=== PATIENT | male | born 1990 | race Caucasian/White ===

== ENCOUNTER 2021-03-28 15:53 | Emergency (ER) | payer BC ==
[~2021-03-28] VITALS: Ht 188 cm; Wt 97.5 kg
[2021-03-28 16:19] VITALS: BP 157/88
[2021-03-28 16:26] VITALS: BP 155/88
--- NOTE | 2021-03-28 16:26 | ER.PDOC ---
General Chief Complaint: Requesting Medical Care Stated Complaint: COUGH/CONGESTION Time seen by MD: 16:24 Source: patient Exam Limitations: no limitations History of Present Illness Timing/Duration: gradual Severity: moderate Associated Symptoms: cough, productive cough, mild SOB Prior symptoms/Treatment: Similar symptoms previous Allergies: Coded Allergies: No Known Allergies (Unverified , 03/28/21) Constitutional: no symptoms reported EENTM: no symptoms reported Respiratory: cough, wheezing Cardiovascular: no symptoms reported Gastrointestinal: no symptoms reported Genitourinary: no symptoms reported Musculoskeletal: no symptoms reported Skin: no symptoms reported Psychiatric/Neurological: no symptoms reported Endocrine: no symptoms reported Hematologic/Lymphatic: no symptoms reported All Other Systems: Reviewed and Negative Past Medical History Medical History: no pertinent history Physical Exam General Appearance: alert, no distress Eye: eyes nml inspection, lids & conjunct. nml, PERRL, no nystagmus Ear: ear nml Nose: nose nml Throat: pharynx nml, airway nml Neck: nml inspection, supple Respiratory: no resp.distress, rales (Crackles in the bases bilaterally.) Abdomen: non-tender, no organomegaly CVS: reg rate & rhythm, heart sounds nml Skin: color nml, no rash, warm/dry Extremities: non-tender, nml ROM, no pedal edema NEURO/PSYCH: oriented x 3, CN's nml as tested, motor nml, sensation nml, mood/affect nml Results/Orders Results/Orders Orders - JAYNE HUMPHREY MD Xr Chest 1v (03/28/21 16:23) Strep Screen (03/28/21 17:00) Influenza A&B (03/28/21 17:00) Vital Signs Date Time Temp Pulse Resp B/P (MAP) Pulse Ox O2 Delivery O2 Flow Rate FiO2 03/28/21 16:26 98.9 87 20 155/88 (110) 99 Room Air 03/28/21 16:19 98.9 87 20 99 03/28/21 16:19 98.9 87 20 Laboratory Tests Test 03/28/21 17:03 Influenza Type A Antigen NEGATIVE (NEG) Influenza Type B Antigen NEGATIVE (NEG) Group A Streptococcus Screen NEGATIVE (NEGATIVE) EKG/XRAY/CT/US XRAY Comments: X-ray shows normal heart and lungs ER DEPART Departure Time of Disposition: 17:47 Disposition: 01 HOME / SELF CARE / HOMELESS Impression: Primary Impression: Acute upper respiratory infection Condition: Stable Patient Instructions: Upper Respiratory Infection, Adult Referrals: PCP,UNKNOWN (PCP) PRIMARY CARE PROVIDER Additional Instructions: Drink plenty of fluids take ibuprofen and Tylenol for fevers. Comments The patient was given a prescription for Robitussin-AC for his symptoms. Duration or Time Spent with Pa: unknown Return to Work/School Can a patient return to work?: Yes Can a patient return to school: Yes JANYE HUMPHREY MD Mar 28, 2021 16:25
--- NOTE | 2021-03-28 17:18 | DIREP ---
PROCEDURE:CHEST 1 VIEW COMPARISON:None. INDICATIONS:cough FINDINGS: LUNGS/PLEURA:Mildly elevated right hemidiaphragm. No infiltrate or pleural effusion. CARDIAC:Normal cardiac silhouette and normal pulmonary vascularity. MEDIASTINUM:Normal BONES:Normal OTHER:No additional findings. CONCLUSION:No acute cardiopulmonary process. Dictated by: Tri Lau MD on 03/28/2021 at 05:16 PM
[2021-03-28 17:20] VITALS: BP 143/82
[2021-03-28 18:00] VITALS: BP 136/77
== END 2021-03-28 18:00 | disposition home or self-care (01) ==
LOC: ER 15:53
DX: J06.9 Acute upper respiratory infection, unspecified (principal)
CPT/HCPCS: 71045; 87070; 87804; 87880; 99284

== ENCOUNTER 2021-06-17 04:12 | Emergency (ER) | payer BC ==
[~2021-06-17] VITALS: Ht 185.4 cm; Wt 97.5 kg
[2021-06-17 04:35] VITALS: BP 155/105
--- NOTE | 2021-06-17 04:48 | NUR ---
30 y/o male woke early am with sore throat, and fever. denies taking any meds.
--- NOTE | 2021-06-17 05:45 | ER.PDOC ---
General Chief Complaint: Requesting Medical Care Stated Complaint: SORE THROAT Time seen by MD: 05:42 Source: patient Exam Limitations: no limitations History of Present Illness Initial Comments Sore throat for 2 days. No fever or chills. He has a mild cough. Timing/Duration: gradual Associated Symptoms: mod sore throat Severity: moderate Allergies: Coded Allergies: No Known Allergies (Unverified , 03/28/21) Past Medical History Medical History: no pertinent history Surgical History: no surgical history Family History Significant Family History: no pertinent family hx Social History Smoking: non-smoker Alcohol Use: occassionally Drug Use: none Constitutional: no symptoms reported Throat: see HPI Respiratory: no symptoms reported Cardiovascular: no symptoms reported Gastrointestinal: no symptoms reported Musculoskeletal: no symptoms reported All Other Systems: Reviewed and Negative Physical Exam General Appearance: alert, no distress Head/Neck: head nml inspection, neck nml inspection, trachea midline, no lymphadenopathy, thyroid nml Eyes: eyes nml inspection, PERRL, no nystagmus Mouth: lips, gums nml, no drooling, no thrush, membranes nml Throat: pharynx nml, voice nml, no airway problems Ears/Nose: nml inspection Respiratory: no resp. distress, lungs clear CVS: reg. rate & rhythm, heart sounds nml Abdomen: non-tender, no organomegaly Extremities: non-tender, ROM nml Skin Exam: Normal Color, Warm/Dry NEURO/PSYCH: oriented X3, mood/effect nml Results/Orders Results/Orders Orders - CELESTINA FELIZ MD Strep Screen (06/17/21 04:50) Covid19 Antigen Zhanna Oleary (06/17/21 04:50) Vital Signs Date Time Temp Pulse Resp B/P (MAP) Pulse Ox O2 Delivery O2 Flow Rate FiO2 06/17/21 04:35 99.4 103 18 155/105 (122) Room Air 06/17/21 04:35 99.4 103 18 96 Laboratory Tests Test 06/17/21 04:32 SARS-CoV-2 Antigen (Rapid) NEGATIVE (NEGATIVE) Group A Streptococcus Screen NEGATIVE (NEGATIVE) Progress Progress Patient is negative for strep, COVID and flu. ER DEPART Departure Time of Disposition: 05:44 Disposition: 01 HOME / SELF CARE / HOMELESS Impression: Primary Impression: Acute pharyngitis Qualified Codes: J02.9 - Acute pharyngitis, unspecified Additional Impression: Viral upper respiratory illness Condition: Stable Referrals: PCP,UNKNOWN (PCP) PRIMARY CARE PROVIDER Additional Instructions: Chloraseptic spray [id number] as directed Ibuprofen F/U with your PCP in 1 week Return to ED if worsening or concerns Duration or Time Spent with Pa: 10 min CELESTINA FELIZ MD Jun 17, 2021 05:45
[2021-06-17 05:50] VITALS: BP 168/98
== END 2021-06-17 05:53 | disposition home or self-care (01) ==
LOC: ER 04:14
DX: J06.9 Acute upper respiratory infection, unspecified (principal); B97.89 Other viral agents as the cause of diseases classified elsewhere; Z20.822 Contact with and (suspected) exposure to COVID-19
CPT/HCPCS: 87070; 87077; 87186; 87426; 87880; 99283